=== PATIENT | female | born 1950 | race African-American/Black ===

== ENCOUNTER 2023-08-21 16:55 | Emergency (ER) | payer MEDICARE ==
[~2023-08-21] VITALS: Ht 157.5 cm; Wt 56.7 kg
[2023-08-21 18:21] VITALS: BP 121/67; TEMP 98.5; O2SAT 99
== END 2023-08-21 18:21 | disposition left against medical advice (07) ==
LOC: ER 16:55
DX: N81.4 Uterovaginal prolapse, unspecified (principal)